=== PATIENT | female | born 1970 | race Caucasian/White ===

== ENCOUNTER 2019-10-03 15:10 | Emergency (ER) | payer OTHER ==
--- OUTSIDE RECORDS SUMMARY | 2019-10-03 15:12 | XMS REPORT ---
:1970 Author Organization eClinicalWorks Care Team Providers Name Role Phone [facility] Provider Role Unavailable Allergies No Known Allergies Problems Problem Type Condition Code Onset Dates Condition Status Problem Asthma, unspecified asthma J45.909 Active severity, unspecified whether complicated, unspecified whether persistent Problem Lumbago with sciatica, right side M54.41 Active Problem Lumbago with sciatica, left side M54.42 Active Problem Other chronic pain G89.29 Active Problem Acute right-sided low back pain M54.41 Active with right-sided sciatica Problem Gastric ulcer, unspecified K25.9 Active chronicity, unspecified whether gastric ulcer hemorrhage or perforation present Problem Gallstones K80.20 Active Problem Seizure disorder G40.909 Active Medications No Known Medications Results No Known Results Summary Purpose eClinicalWorks Submission
--- OUTSIDE RECORDS SUMMARY | 2019-10-03 15:12 | XMS REPORT ---
:1970 Author Organization eClinicalWorks Care Team Providers Name Role Phone Reid [facility] Provider Role Unavailable Allergies, Adverse Reactions, Alerts Substance Reaction Event Type codeine stomach upset Drug Allergy Sulfa vomiting Drug Allergy Problems Problem Type Condition Code Onset Dates Condition Status Assessment Back pain with radiculopathy M54.10 Active Problem Asthma, unspecified asthma J45.909 Active severity, [...] K80.20 Active Problem Seizure disorder G40.909 Active Assessment Other chronic pain G89.29 Active Assessment Lumbago with sciatica, right side M54.41 Active Assessment Lumbago with sciatica, left side M54.42 Active Assessment Elevated BP without diagnosis of R03.0 Active hypertension Assessment Right hip pain M25.551 Active Medications Medication Code Code Instructions Start End Status Dosage System Date Date Cyclobenzaprine [facility] [id number] 5 MG Orally Sep 28, Oct 08, Active 1 tablet HCl Three times a 2019 2019 as needed day PRN SPASM Ibuprofen ND [id number] 800 MG Orally Active 1 tablet Three times a with food day or milk as needed Results No Known Results Summary Purpose eClinicalWorks Submission
--- NOTE | 2019-10-03 17:03 | RAD REPORT ---
EXAM DESCRIPTION: US - Extremity Venous Uni Ltd - 10/03/2019 4:57 pm CLINICAL HISTORY: ecchymosis Leg swelling and edema. COMPARISON: No comparisons FINDINGS: Right lower extremity venous system was interrogated with Doppler technique. Normal flow, compressibility and augmentation was noted. There is no DVT present. IMPRESSION: No evidence of right lower extremity deep venous thrombosis.
--- NOTE | 2019-10-03 17:15 | EDPHYS ---
Physician Documentation [facility] Name: Sari Cordero Age: 48 yrs Sex: Female : 1970 Arrival Date: 10/03/2019 Time: 15:14 Bed 19 Private MD: [facility] ED Physician Camron Britt HPI: 10/03 16:34 This 48 yrs old Female presents to ER via Ambulatory with complaints of Leg snw Problem. 16:34 Onset: The symptoms/episode began/occurred suddenly, last night. Associated signs and snw symptoms: The patient has no apparent associated signs or symptoms. The patient has not experienced similar symptoms in the past. It is unknown whether or not the patient has recently seen a physician. chronic back pain with sciatica. 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 - Social history:: Smoking status: Patient/guardian denies using tobacco. - Ebola Screening: : No symptoms or risks identified at this time. ROS: 16:33 Constitutional: Negative for fever, chills, and weight loss, Eyes: Negative for injury, snw pain, redness, and discharge, ENT: Negative for injury, pain, and discharge, Neck: Negative for injury, pain, and swelling, Cardiovascular: Negative for chest pain, palpitations, and edema, Respiratory: Negative for shortness of breath, cough, wheezing, and pleuritic chest pain, Abdomen/GI: Negative for abdominal pain, nausea, vomiting, diarrhea, and constipation, : Negative for injury, bleeding, discharge, and swelling, Skin: Negative for injury, rash, and discoloration, Neuro: Negative for headache, weakness, numbness, tingling, and seizure. 16:33 Back: Positive for pain at rest, radiated pain, of the right leg. 16:33 MS/extremity: Positive for contusion, ecchymosis, of the right hamstring, Back pain with sciatica x 4 months, noted ecchymosis last pm to right hamstring. Exam: 16:32 Constitutional: This is a well developed, well nourished patient who is awake, alert, snw and in no acute distress. Head/Face: Normocephalic, atraumatic. Eyes: Pupils equal round and reactive to light, extra-ocular motions intact. Lids and lashes normal. Conjunctiva and sclera are non-icteric and not injected. Cornea within normal limits. Periorbital areas with no swelling, redness, or edema. ENT: Nares patent. No nasal discharge, no septal abnormalities noted. Tympanic membranes are normal and external auditory canals are clear. Oropharynx with no redness, swelling, or masses, exudates, or evidence of obstruction, uvula midline. Mucous membranes moist. Neck: Trachea midline, no thyromegaly or masses palpated, and no cervical lymphadenopathy. Supple, full range of motion without nuchal rigidity, or vertebral point tenderness. No Meningismus. Chest/axilla: Normal chest wall appearance and motion. Nontender with no deformity. No lesions are appreciated. Cardiovascular: Regular rate and rhythm with a normal S1 and S2. No gallops, murmurs, or rubs. Normal PMI, no JVD. No pulse deficits. Respiratory: Lungs have equal breath sounds bilaterally, clear to auscultation and percussion. No rales, rhonchi or wheezes noted. No increased work of breathing, no retractions or nasal flaring. Abdomen/GI: Soft, non-tender, with normal bowel sounds. No distension or tympany. No guarding or rebound. No evidence of tenderness throughout. Back: No spinal tenderness. No costovertebral tenderness. Full range of motion. MS/ Extremity: Pulses equal, no cyanosis. Neurovascular intact. Full, normal range of motion. Neuro: Awake and alert, GCS 15, oriented to person, place, time, and situation. Cranial nerves II-XII grossly intact. Motor strength 5/5 in all extremities. Sensory grossly intact. Cerebellar exam normal. Normal gait. Psych: Awake, alert, with orientation to person, place and time. Behavior, mood, and affect are within normal limits. 16:32 Skin: Appearance: normal except for affected area, ecchymosis, noted on the, right hamstring, that are moderate. Vital Signs: 15:23 BP 151 / 86; Pulse 116; Resp 16; Temp 98.3; Pulse Ox 100% on R/A; Weight 83.01 kg; hb Height 5 ft. 7 in. (170.18 cm); Pain 10/10; 17:49 BP 147 / 86; Pulse 87; Resp 18; Temp 97.9; Pulse Ox 98% on R/A; ph 15:23 Body Mass Index 28.66 (83.01 kg, 170.18 cm) hb MDM: 15:53 Patient medically screened. love 17:16 Data reviewed: vital signs, nurses notes. Data interpreted: Pulse oximetry: on room air snw is 100 %. Interpretation: normal. Counseling: I had a detailed discussion with the patient and/or guardian regarding: the historical points, exam findings, and any diagnostic results supporting the discharge/admit diagnosis, the presence of at least one elevated blood pressure reading (>120/80) during this emergency department visit, radiology results, the need for outpatient follow up, to return to the emergency department if symptoms worsen or persist or if there are any questions or concerns that arise at home. Special discussion: I have referred the patient to see his PCP for further evaluation of high blood pressure. Based on the history and exam findings, there is no indication for further emergent testing or inpatient evaluation. I discussed with the patient/guardian the need to see the back specialist for further evaluation of the symptoms. I discussed with the patient/guardian the need to see the primary care provider for further evaluation of the symptoms. 10/03 16:07 Order name: US Extremity Venous Unilateral Ltd; Complete Time: 17:16 snw 10/03 17:13 Order name: Tucker Wrap: tucker to right thigh for mild/moderate compression; Complete Time: snw 17:29 Administered Medications: No medications were administered Disposition: 10/04 07:14 Co-signature as Attending Physician, Camron Britt MD I agree with the assessment and [facility] plan of care. Disposition: 10/03/19 17:14 Discharged to Home. Impression: Ecchymosis to right thigh, Radiculopathy, lumbar region. - Condition is Stable. - Discharge Instructions: Back Pain, Adult, Hamstring Strain, Lumbosacral Radiculopathy, Heat Therapy, Radicular Pain. - Medication Reconciliation Form, Thank You Letter, Antibiotic Education, Prescription Opioid Use form. - Follow up: Emergency Department; When: As needed; Reason: Worsening of condition. Follow up: Rc Mathews DO; When: 2 - 3 days; Reason: Recheck today's complaints, Continuance of care, Re-evaluation by your physician. Signatures: Dispatcher [employer] EDCamron Walters MD MD cha Therrien, Shelly, ROAD REPAIRER-C ROAD REPAIRER-Csnw Lorri Cm, ZACHARY RN Glory Gilbert RN RN Corrections: (The following items were deleted from the chart) 10/03 17:50 17:14 10/03/2019 17:14 Discharged to Home. Impression: Ecchymosis to right thigh; ph Radiculopathy, lumbar region. Condition is Stable. Forms are Medication Reconciliation Form, Thank You Letter, Antibiotic Education, Prescription Opioid Use. Follow up: Emergency Department; When: As needed; Reason: Worsening of condition. Follow up: Rc Mathews; When: 2 - 3 days; Reason: Recheck today's complaints, Continuance of care, Re-evaluation by your physician. snw
--- NOTE | 2019-10-03 17:15 | ER ---
Nurse's Notes [facility] Name: Sari Cordero Age: 48 yrs Sex: Female : 1970 Arrival Date: 10/03/2019 Time: 15:14 Bed 19 Private MD: Rc Mathews Diagnosis: Ecchymosis to right thigh;Radiculopathy, lumbar region Presentation: 10/03 15:20 Presenting complaint: Low back pain that radiates to right leg x 4 months, yesterday hb pain became worse and then she noticed right leg swelling and black bruising to back of right leg. Transition of care: patient was not received from another setting of care. Onset of symptoms was October 02, 2019. Risk Assessment: Do you want to hurt yourself or someone else? Patient reports no desire to harm self or others. Initial Sepsis Screen: Does the patient meet any 2 criteria? No. Patient's initial sepsis screen is negative. Does the patient have a suspected source of infection? No. Patient's initial sepsis screen is negative. Care prior to arrival: None. 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 - Social history:: Smoking status: Patient/guardian denies using tobacco. - Ebola Screening: : No symptoms or risks identified at this time. Screenin:47 Abuse screen: Denies threats or abuse. Denies injuries from another. Nutritional ph screening: No deficits noted. Tuberculosis screening: No symptoms or risk factors identified. Fall Risk None identified. Assessment: 16:30 General: Appears in no apparent distress. comfortable, well groomed, Behavior is calm, ph cooperative, appropriate for age, Denies fever. Pain: Complains of pain in right leg. Neuro: Level of Consciousness is awake, alert, obeys commands, Oriented to person, place, time, situation. Cardiovascular: Capillary refill < 3 seconds in bilateral fingers Patient's skin is warm and dry. Respiratory: Airway is patent Respiratory effort is even, unlabored. Derm: Skin is intact, is healthy with good turgor, Skin is pink, warm \T\ dry. Bruising that is dark purple, on right hamstring and posterior aspect of right knee. Musculoskeletal: Circulation, motion, and sensation intact. Range of motion: intact in all extremities. Vital Signs: 15:23 BP 151 / 86; Pulse 116; Resp 16; Temp 98.3; Pulse Ox 100% on R/A; Weight 83.01 kg; hb Height 5 ft. 7 in. (170.18 cm); Pain 10/10; 17:49 BP 147 / 86; Pulse 87; Resp 18; Temp 97.9; Pulse Ox 98% on R/A; ph 15:23 Body Mass Index 28.66 (83.01 kg, 170.18 cm) hb ED Course: 15:14 Patient arrived in ED. ag5 15:14 Rc Mathews DO is Private Physician. ag5 15:22 Triage completed. hb 15:23 Arm band placed on. hb 15:53 Sandra Hargrove FNP-C is PHCP. snw 15:53 Camron Britt MD is Attending Physician. snw 16:07 Lorri Cm RN is Primary Nurse. ph 16:30 Patient has correct armband on for positive identification. Placed in gown. Bed in low ph position. Call light in reach. Side rails up X2. Pulse ox on. NIBP on. 16:58 US Extremity Venous Unilateral Ltd In Process Unspecified. EDMS 17:14 Rc Mathews DO is Referral Physician. snw 17:47 No provider procedures requiring assistance completed. Patient did not have IV access ph during this emergency room visit. Tucker wrap to right leg. Administered Medications: No medications were administered Outcome: 17:14 Discharge ordered by . snw 17:48 Discharged to home ambulatory. ph 17:48 Condition: good 17:48 Discharge instructions given to patient, Instructed on discharge instructions, follow up and referral plans. Demonstrated understanding of instructions, follow-up care. 17:50 Patient left the ED. ph Signatures: Dispatcher [employer] EDNC Sandra Hargrove FNP-C BOOK EDITOR-Csnw Lorri Cm RN RN Glory Mcmanus, RN RN hb Alida, Solis ag5
[2019-10-03 18:06] VITALS: BP 147/86; TEMP 97.9; O2SAT 98
== END 2019-10-03 17:50 | disposition home or self-care (01) ==
LOC: ER 15:10
DX: S70.11XA Contusion of right thigh, initial encounter (principal); M54.16 Radiculopathy, lumbar region; Z88.2 Allergy status to sulfonamides; Z88.5 Allergy status to narcotic agent
CPT/HCPCS: 93971; 99283

== ENCOUNTER 2021-03-13 17:05 | Emergency (ER) | payer OTHER, SELFPAY ==
--- OUTSIDE RECORDS SUMMARY | 2021-03-13 17:08 | XMS REPORT | Continuity of Care Document ---
:1970 Author Organization [facility] t Address [address] [place] [address] Care Team Providers Name Role Phone Gera Mejia MD Attending Clinician Payers Payer Name Policy Type Policy Number Effective Date Expiration Date S ource Problems This patient has no known problems. Allergies, Adverse Reactions, Alerts Allergy Allergy Status Severity Reaction(s) Onset Inactive Treating Comm ents Source Name Type Date Date Clinician codeine Adverse Active stomach [facility] Sulfa Adverse Active vomiting [facility] Reaction [facility] Medications Ordered Filled Start Stop Current Ordering Indication Dosage Frequency Signature Comments Components Source Medication Medication Date Date Medication? Clinician (SIG) Name Name Ibuprofen Ibuprofen Yes Rc [address] [facility]ws with food [facility] or milk [facility] Immunizations Ordered Filled Immunization Date Status Comments Sourc e Immunization Name Name TDAP > 7 TDAP > 7 2020-02-[address] [facility] 00:00:00 [facility] Procedures This patient has no known procedures. Encounters Start End Encounter Admission Attending Care Care Encounter Source Date/Time Date/Time Type Type Clinicians Facility Department ID 2020-11-12 2020-11-12 Outpatient [facility] [id number] [facility] 2020-11-12 2020-11-12 Outpatient [facility] [id number] [facility] 2020-11-11 2020-11-11 Outpatient [facility] [id number] [facility] 2020-09-26 2020-09-26 Outpatient [facility] [id number] [facility] 2020-09-26 2020-09-26 Outpatient [facility] [id number] [facility] 2020-07-03 2020-07-03 Outpatient [facility] [id number] [facility] 2020-07-03 2020-07-03 Outpatient [facility] [id number] [facility] 2020-06-24 2020-06-24 Outpatient [facility] [id number] [facility] 2020-03-20 2020-03-20 [facility] [id number] [facility] 11:01[facility]00 11:01:00 [place] [employer] [facility] - [facility] Clinics 2020-02-23 2020-02-23 [facility] [id number] [facility] 08:06:00 08:06:00 [place] [employer] s - Drive [facility] Clinics 2020-02-21 2020-02-21 [facility] [id number] [facility] 08:02:00 08:02:00 [place] [employer] s - Drive [facility] Clinics 2020-02-15 2020-02-15 [facility] [id number] [facility] 08:03:00 08:03:00 [place] [employer] [facility] Outpati ent Clinics 2020-02-13 2020-02-13 [facility] [id number] 14:45:00 14:45:00 [place] [employer] [place] - [employer] [facility] Medicine Outpati ent Clinics 2019-12-13 2019-12-13 Office Shaquille Mejia [facility] [id number] 09:36:33 12:17:40 Visit Gera AMBULATOR [id number] Y [id number] 2019-11-02 2019-11-02 [facility] [id number] 11:18:00 11:18:00 t App [employer] [facility] Medicine Outpati ent Clinics 2019-10-27 2019-10-27 Office Shaquille Mejia [facility] [id number] 13:13:18 16:46:34 Visit Gera AMBULATOR [id number] Y [id number] 2019 2019 [facility] [id number] 08:24:00 08:24:00 t [employer] [facility] Medicine Outpati ent Clinics 2019-10-09 2019-10-09 [facility] [id number] [facility] 10:04:00 10:04:00 t App [employer] s - Integrity Tracking [facility] Medicine Outpati ent Clinics 2019-10-03 2019-10-03 [facility] [id number] 14:15:00 14:15:00 t [place] [employer] - Integr[employer] Tracking [facility] Medicine Outpati ent Clinics 2019-09-29 2019-09-29 [facility] [id number] 08:33:00 08:33:00 t App [employer] s [employer] [facility] Medicine Outpati ent Clinics 2019-09-28 2019-09-28 [facility] [id number] [facility] 13:30:00 13:30:00 t App [employer] [facility] Medicine Outpati ent Clinics Results This patient has no known results.
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
[2021-03-13 21:25] VITALS: TEMP 98
[2021-03-13 21:26] VITALS: BP 146/81; O2SAT 97
== END 2021-03-13 21:01 | disposition home or self-care (01) ==
LOC: ER 17:05
DX: T74.21XA Adult sexual abuse, confirmed, initial encounter (principal); F17.210 Nicotine dependence, cigarettes, uncomplicated; Z88.2 Allergy status to sulfonamides; Z88.5 Allergy status to narcotic agent; Z88.8 Allergy status to other drugs, medicaments and biological substances